=== PATIENT | male | born 1955 | race Caucasian/White ===

== ENCOUNTER 2021-09-12 08:59 | Day surgery (SDC) | payer MEDICARE, BC ==
[~2021-09-12] VITALS: Ht 177.8 cm; Wt 111.0 kg
[2021-09-12] VITALS (8 sets, daily range): BP systolic 117–140; BP diastolic 44–85
[2021-09-12] MEDS ORDERED: diphenhydrAMINE 25mg capsule PO PRN (09:25)
[2021-09-12] MEDS ORDERED: normal saline 1,000 ML IV SCH (09:25)
[2021-09-12] MEDS ORDERED: LISI20TA28 PO (09:39)
[2021-09-12] MEDS ORDERED: ALLO100T PO (09:39)
[2021-09-12] MEDS ORDERED: CARV-50 PO (09:39)
[2021-09-12] MEDS ORDERED: AMIO200T62 PO (09:39)
[2021-09-12] MEDS ORDERED: APIX2.5T PO (09:39)
[2021-09-12] MEDS ORDERED: FURO-150 PO (09:39)
[2021-09-12 09:58] LABS: BASOPHILS # (AUTO) 0.1 X10'3 (0-0.2); EOSINOPHILS # (AUTO) 0.4 X10'3 (0-0.9); MONOCYTES # (AUTO) 0.7 X10'3 (0-0.9); NEUTROPHILS # (AUTO) 6.2 X10'3 (1.8-7.7)
[2021-09-12 10:00] LABS: EOSINOPHILS % (AUTO) 4.3 % (0-6); HEMATOCRIT 51.7 % (42.0-52.0); HEMOGLOBIN 17.6 g/dl (14.0-17.9); MEAN CORPUSCULAR HEMOGLOBIN 30.7 PG (27.0-31.0); MEAN CORPUSCULAR VOLUME 90.2 FL (78-98); MEAN PLATELET VOLUME 8.1 FL (7.4-10.4); MONOCYTES % (AUTO) 7.5 % (2-12); NEUTROPHILS % (AUTO) 66.2 % (42-75); PLATELET COUNT 205 X10'3 (140-440); RED BLOOD COUNT 5.73 X10'6 (4.70-6.10); WHITE BLOOD COUNT 9.3 X10'3 (4.5-11.0)
[2021-09-12 10:12] LABS: ALBUMIN 4.1 G/DL (3.4-5.0); ANION GAP 12 (8-16); BLOOD UREA NITROGEN 37 MG/DL (7-18); BUN/CREATININE RATIO 18.7 (5.4-32.0); CHLORIDE 101 MMOL/L (99-107); CREATININE 1.98 MG/DL (0.60-1.10); GLUCOSE 126 MG/DL (70-104); POTASSIUM 4.4 MMOL/L (3.5-5.1); SODIUM 140 MMOL/L (135-145); TOTAL CARBON DIOXIDE 27.4 MMOL/L (24-32); eGFR 34 ML/MIN
--- NOTE | 2021-09-12 12:30 | NUR ---
Report given to Liliana CHEUNG
[2021-09-12] MEDS ORDERED: nitroGLYCERIN-Tridil 50MG/D5W 250 ML IV ONE (12:33)
[2021-09-12] MEDS ORDERED: verapamil 2.5 mg/ml inj IV ONE (12:33)
[2021-09-12] MEDS ORDERED: midazolam 1 mg/ML 2ml injection ONE (12:34)
[2021-09-12] MEDS ORDERED: LIDOcaine 1% (10mg/ml) 2ml vial ONE (12:34)
[2021-09-12] MEDS ORDERED: heparin 1,000unit/ml 10ml vial 10 ML ONE (12:34)
[2021-09-12] MEDS ORDERED: fentaNYL/PF 50MCG/1 ML 2ML syringe ONE (12:34)
[2021-09-12] MEDS ORDERED: iohexol 350MG/ML 100ml bottle IV ONE ×3 (12:34→13:58)
[2021-09-12] MEDS ORDERED: heparin 1,000 UNITS/NS 500ml 500 ML ONE (14:14)
[2021-09-12] MEDS ORDERED: clopidogrel 300mg tablet ONE (14:36)
[2021-09-12] MEDS ORDERED: normal saline 1000ml 1,000 ML IV ONE (15:30)
[2021-09-12] MEDS ORDERED: ondansetron/PF 4mg/2ml inj IV PRN (15:30)
[2021-09-12] MEDS ORDERED: proCHLORperazine 10 MG/2 ml inj IV PRN (15:30)
[2021-09-12] MEDS ORDERED: HYDROcodone/acetaminophen 10/325mg tab PO PRN (15:30)
[2021-09-12] MEDS ORDERED: HYDROcodone/acetaminophen 5mg/325mg tablet PO PRN (15:30)
[2021-09-12] MEDS ORDERED: normal saline 1000ml 1,000 ML IV SCH (15:50)
== END 2021-09-12 18:15 | disposition home or self-care (01) ==
LOC: SSTAY O 08:59
PROVIDERS: ATTEND Internal Medicine Cardiovascular Disease
DX: I25.10 Atherosclerotic heart disease of native coronary artery without angina pectoris (principal); I11.0 Hypertensive heart disease with heart failure; I34.0 Nonrheumatic mitral (valve) insufficiency; I50.9 Heart failure, unspecified; I48.0 Paroxysmal atrial fibrillation; E78.5 Hyperlipidemia, unspecified; G47.30 Sleep apnea, unspecified; Z79.899 Other long term (current) drug therapy; Z98.890 Other specified postprocedural states
CPT/HCPCS: 36415; 80048; 83735; 85025; 85610; 93005; 93460; C1725; C1751; C1769; C1874; C1894; C9600; J1644; J2250; J3010; J3490; J7030; Q0163; Q9967; 99152; 99153; A4615; A4620; A5120; A6258; A6402

== ENCOUNTER 2021-10-03 06:08 | Day surgery (SDC) | payer MEDICARE, BC ==
[~2021-10-03] VITALS: Ht 177.8 cm; Wt 112.3 kg
[2021-10-03] VITALS (11 sets, daily range): BP systolic 92–116; BP diastolic 41–78
[~2021-10-03 06:08] MED LIST: ALLO100T PO; AMIO200T62 PO; APIX2.5T PO; CARV-50 PO; FURO-150 PO; LISI20TA28 PO
[2021-10-03] MEDS ORDERED: MIDAZolam 1mg/ml 10ml vial IV ONE (06:25)
[2021-10-03] MEDS ORDERED: normal saline 1000ml 1,000 ML IV SCH (06:25)
[2021-10-03] MEDS ORDERED: fentaNYL/PF 50MCG/1 ML 2ML syringe IV ONE (06:25)
[2021-10-03] MEDS ORDERED: CLOP75TA34 PO (06:34)
[2021-10-03 07:10] LABS: BASOPHILS # (AUTO) 0.1 X10'3 (0-0.2); BASOPHILS % (AUTO) 1.3 % (0-1); EOSINOPHILS # (AUTO) 0.5 X10'3 (0-0.9); EOSINOPHILS % (AUTO) 5.9 % (0-6); HEMATOCRIT 46.5 % (42.0-52.0); HEMOGLOBIN 15.8 g/dl (14.0-17.9); LYMPHOCYTES # (AUTO) 2.3 X10'3 (1.1-4.8); LYMPHOCYTES % (AUTO) 26.9 % (21-51); MEAN CORPUSCULAR HEMOGLOBIN 30.8 PG (27.0-31.0); MEAN CORPUSCULAR HGB CONC 34.1 g/dL (33.0-36.5); MEAN CORPUSCULAR VOLUME 90.5 FL (78-98); MEAN PLATELET VOLUME 7.6 FL (7.4-10.4); MONOCYTES # (AUTO) 0.8 X10'3 (0-0.9); MONOCYTES % (AUTO) 9.7 % (2-12); NEUTROPHILS # (AUTO) 4.8 X10'3 (1.8-7.7); NEUTROPHILS % (AUTO) 56.2 % (42-75); PLATELET COUNT 185 X10'3 (140-440); RED BLOOD COUNT 5.13 X10'6 (4.70-6.10); RED CELL DISTRIBUTION WIDTH 16.4 % (11.5-14.5); WHITE BLOOD COUNT 8.6 X10'3 (4.5-11.0)
[2021-10-03 07:26] LABS: ALBUMIN 3.8 G/DL (3.4-5.0); ANION GAP 9 (8-16); BLOOD UREA NITROGEN 32 MG/DL (7-18); BUN/CREATININE RATIO 16.7 (5.4-32.0); CALCIUM 8.7 MG/DL (8.5-10.1); CHLORIDE 104 MMOL/L (99-107); CREATININE 1.92 MG/DL (0.60-1.10); GLUCOSE 117 MG/DL (70-104); MAGNESIUM 2.1 MG/DL (1.5-2.4); SODIUM 141 MMOL/L (135-145); TOTAL CARBON DIOXIDE 27.6 MMOL/L (24-32); eGFR 35 ML/MIN
== END 2021-10-03 10:40 | disposition home or self-care (01) ==
LOC: SSTAY O 06:08
PROVIDERS: ATTEND Internal Medicine Cardiovascular Disease
DX: I48.0 Paroxysmal atrial fibrillation (principal); I48.3 Typical atrial flutter; I48.91 Unspecified atrial fibrillation; I34.0 Nonrheumatic mitral (valve) insufficiency; I10 Essential (primary) hypertension; E78.5 Hyperlipidemia, unspecified; G47.30 Sleep apnea, unspecified; N19 Unspecified kidney failure; I42.0 Dilated cardiomyopathy; Z98.890 Other specified postprocedural states; Z79.899 Other long term (current) drug therapy; Z82.49 Family history of ischemic heart disease and other diseases of the circulatory system
CPT/HCPCS: 36415; 80048; 83735; 85025; 85610; 92960; 93005; J2250; J3010; J7030; A4620